=== PATIENT | male | born 1985 | race Hispanic/Latino ===

== ENCOUNTER 2017-04-13 17:23 | Emergency (ER) | payer OTHER ==
[2017-04-13 17:59] VITALS: BP 133/67; PULSE 44; RESP 17; TEMP 98.2; O2SAT 100
--- NOTE | 2017-04-13 18:44 | ED PDOC ---
HPI: Skin/Bite Injury Time Seen by Provider: 04/13/17 18:02 Chief Complaint (Nursing): Bite Chief Complaint (Provider): Bite History Per: Patient History/Exam Limitations: no limitations Onset/Duration Of Symptoms: Days (x 1) Current Symptoms Are (Timing): Still Present Location Of Injury: Left: Hand Additional Complaint(s): Miguel is a 31 y/o male who presents to the ED for evaluation of animal bite. States he was bit by his dog around 10AM this morning, sustaining a laceration to the left hand between the 4th and 5th MCPs. Dogs vaccinations are up to date. Patients tetanus is not. Patient is concerned he may need antibiotics. PMD: Unknown Past Medical History Reviewed: Historical Data, Nursing Documentation, Vital Signs Vital Signs: Last Vital Signs Temp 98.2 F 04/13/17 17:56 Pulse 44 L 04/13/17 17:56 Resp 17 04/13/17 17:56 BP 133/67 04/13/17 17:56 Pulse Ox 100 04/13/17 19:36 - Family History Family History: States: No Known Family Hx - Home Medications Home Medications: Ambulatory Orders Medication Instructions Recorded Amoxicillin/Clavulanate [Augmentin 1 tab PO Q8 #30 tab 04/13/17 500 MG-125 MG] - Allergies Allergies/Adverse Reactions: Allergies Allergy/AdvReac Type Severity Reaction Status Date / Time No Known Allergies Allergy Verified 04/13/17 17:55 Review of Systems ROS Statement: Except As Marked, All Systems Reviewed And Found Negative Constitutional: Negative for: Fever Skin: Positive for: Lesions (Bite wound on left hand) Physical Exam - Reviewed Nursing Documentation Reviewed: Yes Vital Signs Reviewed: Yes - Physical Exam Appears: Positive for: Well, Non-toxic, No Acute Distress Head Exam: Positive for: ATRAUMATIC, NORMAL INSPECTION, NORMOCEPHALIC Skin: Positive for: Normal Color, Warm, Dry Eye Exam: Positive for: Normal appearance Neck: Positive for: Normal, Painless ROM Respiratory: Negative for: Respiratory Distress Extremity: Positive for: Normal ROM, Other (Small superficial wound at the 4th and 5th MCP. No active bleeding. No surrounding erythema) Neurologic/Psych: Positive for: Alert, Oriented. Negative for: Motor/Sensory Deficits - ECG O2 Sat by Pulse Oximetry: 100 (RA) Pulse Ox Interpretation: Normal Medical Decision Making Medical Decision Making: Time: 18:25 Initial Plan: --Given tetanus vaccine --Wound will be cleaned and covered --Instructions given for wound care Clinical Impression: Dog bite Upon provider evaluation patient is medically stable, and requires no further treatment in the ED at this time. Patient will be discharged home with Rx for Augmentin. Counseling was provided and all questions were answered regarding diagnosis and need for follow up with PMD or [facility] for wound check. There is agreement to discharge plan. Return if symptoms persist or worsen. Scribe Attestation: Documented by Yanira Rick, acting as a scribe for Ty Pepper PA-C Provider Scribe Attestation: All medical record entries made by the Scribe were at my direction and personally dictated by me. I have reviewed the chart and agree that the record accurately reflects my personal performance of the history, physical exam, medical decision making, and the department course for this patient. I have also personally directed, reviewed, and agree with the discharge instructions and disposition. Disposition - Clinical Impression Clinical Impression: Dog bite - Patient ED Disposition Is Patient to be Admitted: No Counseled Patient/Family Regarding: Diagnosis, Need For Followup, Rx Given - Disposition Referrals: Carrie Barrios [Outside] Disposition: Routine/Home Disposition Time: 18:29 Condition: STABLE Prescriptions: Amoxicillin/Clavulanate [Augmentin 500 MG-125 MG] 1 tab PO Q8 #30 tab Instructions: Animal Bite (ED) Forms: [employer] (Montenegrin) Print Language: PERSIAN
== END 2017-04-13 19:16 | disposition home or self-care (01) ==
LOC: H.ER 17:23
DX: S61.452A Open bite of left hand, initial encounter (principal); W54.0XXA Bitten by dog, initial encounter; Y92.89 Other specified places as the place of occurrence of the external cause